=== PATIENT | male | born 1990 | race Caucasian/White ===

== ENCOUNTER 2018-08-08 06:49 | Emergency (ER) | payer MEDICAID ==
[~2018-08-08] VITALS: Ht 175.3 cm; Wt 70.0 kg
[2018-08-08] MEDS ORDERED: ONDANSETRON HCL 4MG/2ML INJ IV STA (07:37)
[2018-08-08] MEDS ORDERED: MAGNESIUM/ALUMINUM HYDROXIDE/SIMETHICONE 30ML UDC PO STA (07:37)
[2018-08-08] MEDS ORDERED: ASPIRIN 81MG TABLET PO ONE (07:45)
[2018-08-08] MEDS ORDERED: FAMOTIDINE 20MG TABLET PO ONE (07:45)
[2018-08-08 07:52] LABS: BASOPHILS % 0.5 % (0.0-2.0); EOSINOPHILS % 1.2 % (0.0-5.0); HEMATOCRIT. 45.3 % (42.0-52.0); HEMOGLOBIN. 15.3 g/dL (14.0-18.0); LYMPHOCYTES % 23.5 % (20.0-50.0); MEAN CORPUSCULAR HEMOGLOBIN 29.4 pg (28.0-32.0); MEAN CORPUSCULAR VOLUME 86.9 fL (80.0-94.0); MEAN PLATELET VOLUME 8.4 fl (7.4-10.4); MONOCYTES % 8.2 % (2.0-8.0); NEUTROPHILS % 66.6 % (40.0-76.0); PLATELET 206 x1000/uL (130-400); RED BLOOD CELL COUNT 5.21 mill/uL (4.7-6.1); RED CELL DISTRIBUTION WIDTH 13.7 % (11.6-14.6)
[2018-08-08 07:58] LABS: CHLORIDE 106 mEq/L (98-107)
[2018-08-08 08:00] LABS: PROTHROMBIN TIME 9.9 sec (9.6-11.0)
[2018-08-08 11:00] VITALS: BP 132/77
== END 2018-08-08 11:45 | disposition home or self-care (01) ==
LOC: ER 07:31
DX: R07.9 Chest pain, unspecified (principal)
CPT/HCPCS: 36415; 71045; 80053; 83880; 84484; 85025; 85610; 93005; 96374; 99284; J2405; Z7610